=== PATIENT | male | born 1975 | race Caucasian/White ===

== ENCOUNTER → 2020-05-16 | Outpatient (CLI) | payer OTHER ==
[~2020-05-16] MED LIST: IBUPROFEN 200200 M1; VITAMIN B-12100 MC1; [UNRECOGNIZED DRUG - REMARK]
== END ==
LOC: LAB 09:25 → EDSTATUS 10:23 → LAB 13:36
PROVIDERS: ATTEND Anesthesiology
DX: Z01.812 Encounter for preprocedural laboratory examination (principal); Z20.828 Contact with and (suspected) exposure to other viral communicable diseases